=== PATIENT | male | born 1985 | race Two or more races ===

== ENCOUNTER → 2020-05-08 | Outpatient (CLI) | payer OTHER ==
--- NOTE | 2020-05-08 11:31 | Diagnostic Imaging Report ---
Indication: Abnormal thyroid function tests Technique: Grayscale and duplex images of the thyroid Comparison: none Findings: Right thyroid lobe measures 4.7 cm length x 1.3 cm AP. Left thyroid lobe measures 4 cm length x 1.1 cm AP. Both thyroid lobes demonstrate slightly heterogeneous echogenicity. No focal abnormality. Impression: Slightly heterogeneous thyroid echogenicity diffusely, without focal abnormality. This is nonspecific, could be baseline for this patient or could indicate thyroiditis changes. No focal nodule demonstrated
== END | disposition home or self-care (01) ==
LOC: ULS 09:54
DX: R94.6 Abnormal results of thyroid function studies (principal); I10 Essential (primary) hypertension
CPT/HCPCS: 76536